=== PATIENT | female | born 1990 | race African-American/Black ===

== ENCOUNTER 2019-04-02 07:35 | Emergency (ER) | payer MEDICAID ==
[~2019-04-02] VITALS: Ht 165.1 cm; Wt 77.6 kg
[2019-04-02 07:49] VITALS: Ht 165.1 cm; Wt 77.6 kg
[2019-04-02 08:56] LABS: BASOPHIL % 0.4 % (0-2); PLATELET COUNT 217 x10^3mcL (130-400); RED CELL DISTRIBUTION WIDTH 12.2 % (11.5-14.5)
[2019-04-02 09:42] LABS: ALBUMIN 2.9 g/dL (3.4-5.0); ALKALINE PHOSPHATASE 75 U/L (46-116); ALT/SGPT 44 U/L (14-59); AST/SGOT 30 U/L (15-37); BILIRUBIN TOTAL 0.2 mg/dL (0.20-1.00); CALCIUM 8.3 mg/dL (8.5-10.1); CARBON DIOXIDE 24.5 mmol/L (21-32); CHLORIDE SERUM 105 mmol/L (98-107); CREATININE SERUM 0.5 mg/dL (0.6-1.0); GFR1 > 60 mL/min; GLUCOSE SERUM 81 mg/dL (74-106); POTASSIUM SERUM 4.1 mmol/L (3.5-5.1); SODIUM SERUM 137 mmol/L (136-145); TOTAL PROTEIN, SERUM 6.7 g/dL (6.4-8.2)
[2019-04-02 10:46] VITALS: BP 124/74
== END 2019-04-02 11:29 | disposition home or self-care (01) ==
LOC: ED 07:35
PROVIDERS: Emergency Medicine
DX: O26.892 Other specified pregnancy related conditions, second trimester (principal); R51 Headache; R10.30 Lower abdominal pain, unspecified; H53.149 Visual discomfort, unspecified; Z3A.24 24 weeks gestation of pregnancy
CPT/HCPCS: J2765; J7030